=== PATIENT | female | born 1990 | race Caucasian/White ===

== ENCOUNTER 2020-03-11 16:21 | Outpatient (CLI) | payer BC ==
[2020-03-11 16:48] VITALS: PULSE 94; RESP 18; TEMP 98.8
[2020-03-11 17:13] LABS: Basophils % (A) 0 %; Eosinophils # (A) 0.1 k/uL (0-0.7); Eosinophils % (A) 1 %; HCT 36.8 % (34.0-46.0); HGB 12.1 gm/dL (11.4-16.0); Lymphocytes # (A) 1.2 k/uL (1.0-4.8); Lymphocytes % (A) 10 %; MCH 30.4 pg (25.0-35.0); MCHC 32.8 g/dL (31.0-37.0); MCV 92.6 fL (80.0-100.0); Mean Platelet Volume 8.2; Monocytes # (A) 0.5 k/uL (0-1.0); Monocytes % (A) 4 %; Neutrophils # (A) 10.3 k/uL (1.3-7.7); Neutrophils % (A) 84 %; Platelet Count 232 k/uL (150-450); RBC 3.97 m/uL (3.80-5.40); RDW 13.9 % (11.5-15.5); WBC 12.3 k/uL (3.8-10.6)
[2020-03-11 17:29] LABS: ALT 24 U/L (4-34); AST 28 U/L (14-36); African American GFR (CKD) >90 (>60 ml/min/1.73 sqM); Blood Urea Nitrogen 9 mg/dL (7-17); LDH 436 U/L (313-618); Non-African American GFR(CKD) >90 (>60 ml/min/1.73 sqM); Uric Acid 3.9 mg/dL (3.7-7.4)
[2020-03-11 17:36] LABS: Appearance,Urine Cloudy (Clear); Bacteria,Urine Rare /hpf; Bilirubin,Urine Negative (Negative); Blood,Urine Negative (Negative); Color,Urine Yellow; Glucose,Urine (UA) Negative (Negative); Ketones,Urine Negative (Negative); Leukocyte Esterase,Urine Small (Negative); Mucus,Urine Rare /hpf; Nitrite,Urine Negative (Negative); PH, Urine 6.5 (5.0-8.0); Protein,Urine Negative (Negative); RBC,Urine 2 /hpf (0-5); Specific Gravity,Urine 1.015 (1.001-1.035); Squamous Epithelial Cell,Urine 10 /hpf (0-4); Urobilinogen,Urine <2.0 mg/dL (<2.0); WBC,Urine 3 /hpf (0-5)
[2020-03-11 18:12] VITALS: BP 143/90
--- NOTE | 2020-03-13 12:54 | P.MSEPDOC ---
Presenting Problems - Arrival Data Date of Arrival on Unit: 03/11/20 Time of Arrival on Unit: 16:21 Mode of Transport: Ambulatory - Complaint OB-Reason for Admission/Chief Complaint: Observation/Evaluation Comment: Pt presents with upper ab pain since 1200 today. Medical History - Information : 1 Para: 0 Term: 0 : 0 Abortions: Spontaneous or Elective: 0 Number of Living Children: 0 - Gestational Age Gestational Age by MOY (wks/days): 38 Weeks and 2 Days Review of Systems - Review of Systems Constitutional: No problems Breast: No problems ENT: No problems Cardiovascular: No problems Respiratory: No problems Gastrointestinal: No problems Genitourinary: No problems Musculoskeletal: No problems Neurological: No problems Skin: No problems Vital Signs - Temperature Temperature: 98.8 F Temperature Source: Temporal Artery Scan - Pulse Right Sitting Brachial Pulse Rate: 94 Pulse Assessment Method: Automatic Cuff - Respirations Respiratory Rate: 18 Oxygen Delivery Method: Room Air O2 Sat by Pulse Oximetry: 98 - Blood Pressure Right Arm Sitting Blood Pressure: 143/90 Blood Pressure Mean: 107 Blood Pressure Source: Automatic Cuff Medical Screen Scoring (Pre) - Cervical Exam Dilation: 1-3 cm = 1 Effacement: More than 50% = 2 Membranes: Intact - Uterine Contractions Frequency: N/A Duration: N/A Intensity: N/A - Maternal Vital Signs Maternal Temperature: N/A Maternal Blood Pressure: N/A Signs of Preeclampsia: Epigastric Pain = 1 Maternal Respirations: N/A - Maternal Trauma Maternal Trauma: N/A - Assessment - Baby A Baseline FHR: 130 Heart Rate - NICHD Category: Category I (Normal) = 0 NST: Reactive Position: N/A Station: N/A - Total Score - Baby A Total Score - Baby A: 4 - Total Score - Baby B Total Score - Baby B: 4 - Total Score - Baby C Total Score - Baby C: 4 - Level of Risk - Baby A Level of Risk - Baby A: Low (0-5) - Level of Risk - Baby B Level of Risk - Baby B: Low (0-5) - Level of Risk - Baby C Level of Risk - Baby C: Low (0-5) Physician Notification (Pre) - Physician Notified Physician Notified Date: 03/11/20 Physician Notified Time: 16:45 New Order Received: Yes - Notification Comment Comment: Doris cruz\Dr. Broderick, advsd , 38 2, c/o upper abd pain/pressure since 1200 today, lower ab cramping, SVE 1.5/70/-2. Reviewed BPs and maternal ass't, states to order PIH labs, UA, no pro/cre ratio. Physician Notification (Post) - Notification Comment Comment: Reviewed labs and BP. Prescription sent in for Labetolol 100mg PO BID, pt to be off work, call office Saturday for appt same day. Review PIH S/SX and to return c\symptoms or decreased movement. Disposition - Disposition OB Disposition: Discharge to home, Written follow up instructions reviewed Discharge Date: 03/11/20 Discharge Time: 18:04 I agree with the RN Medical Screening Exam: Yes Risk & Benefit of care provided described in d/c instruction: Yes Diagnosis: GESTATIONAL HTN W/O SIGNIFICANT PROTEINURIA, THIRD TRIMESTER
== END 2020-03-11 18:04 | disposition home or self-care (01) ==
LOC: FBPOP 16:21
PROVIDERS: ATTEND Obstetrics & Gynecology
DX: O13.5 Gestational [pregnancy-induced] hypertension without significant proteinuria, complicating the puerperium (principal); Z3A.38 38 weeks gestation of pregnancy
CPT/HCPCS: 59025; 81001; 82565; 83615; 84450; 84460; 84520; 84550; 85025; 99215

== ENCOUNTER 2020-03-16 06:00 | Inpatient (IN) | payer BC ==
[2020-03-16] MEDS ORDERED: OXYTOCIN 10 UNIT/ML 1 ML VIAL IM PRN (06:38)
[2020-03-16] MEDS ORDERED: PENICILLIN G POTASSIUM 5,000,000 UNIT in DEXTROSE 5% IN WATER 100 ML IVPB STA ×2 (06:38)
[2020-03-16] MEDS ORDERED: LIDOCAINE 0.5% (PF) 5 MG/ML (50 ML SDV) SQ PRN (06:38)
[2020-03-16] MEDS ORDERED: METHYLERGONOVINE 0.2 MG/ML 1 ML AMP IM PRN (06:38)
[2020-03-16] MEDS ORDERED: CARBOPROST TROMETHAMINE 250 MCG/ML 1 ML AMP IM PRN (06:38)
[2020-03-16] MEDS ORDERED: TERBUTALINE 1 MG/ML VIAL SQ PRN (06:38)
[2020-03-16] MEDS ORDERED: OXYTOCIN 30 UNITS/500 ML NS 30 UNIT in SALINE 1 500ML.BAG IV SCH (06:45)
[2020-03-16 06:51] LABS: Basophils % (A) 0 %; Eosinophils # (A) 0.1 k/uL (0-0.7); Eosinophils % (A) 1 %; Lymphocytes # (A) 1.6 k/uL (1.0-4.8); Lymphocytes % (A) 15 %; MCH 31.3 pg (25.0-35.0); MCHC 32.4 g/dL (31.0-37.0); MCV 96.7 fL (80.0-100.0); Mean Platelet Volume 8.4; Monocytes # (A) 0.4 k/uL (0-1.0); Monocytes % (A) 4 %; Neutrophils # (A) 8.4 k/uL (1.3-7.7); Neutrophils % (A) 78 %; Platelet Count 259 k/uL (150-450); RBC 4.14 m/uL (3.80-5.40); RDW 14.3 % (11.5-15.5); WBC 10.7 k/uL (3.8-10.6)
[2020-03-16] MEDS: LACTATED RINGERS 1,000 ML IV SCH (06:58)
[2020-03-16] MEDS ORDERED: BUTORPHANOL 1 MG/ML 1 ML VIAL IV PRN (08:27)
--- NOTE | 2020-03-16 08:30 | P.HPOB ---
History of Present Illness H&P Date: 03/16/20 Chief Complaint: 39-0/7 weeks, -induced hypertension, induction The patient is a 29-year-old 1 para 0 admitted at 40-0/7 weeks as established by last menstrual period and confirmed by seven-week ultrasound. She is admitted for induction of labor with a relatively favorable cervix and a diagnosis of -induced hypertension which was made last week on a visit to triage at which time she had moderately elevated blood pressures but normal laboratory workup otherwise. Her blood pressures have remained stable and she has no other signs or symptoms of preeclampsia at this time. Her has been otherwise entirely uncomplicated. All signs are reassuring at this time. Group B strep status is positive. Obstetrical history: 1 para 0 with current statistics listed in history of present illness. EDC of 03/23/2020 was established by last menstrual period and confirmed by seven-week ultrasound. Laboratory workup de monstrates a blood type of A+ with a negative antibody screen. Rubella status is immune. Remainder of the laboratory workup was within normal limits. One hour Glucola was normal and group B strep status is positive. Gynecologic history: Unremarkable with no history of any infections to include S TDs. Past Medical History History of Any Multi-Drug Resistant Organisms: None Reported Smoking Status: Never smoker Medications and Allergies Home Medications Medication Instructions Recorded Confirmed Type Pnv No.95/Ferrous Fum/Folic AC 1 each PO DAILY 03/11/20 03/16/20 History [ Multivitamin Tablet] Thyroid,Pork [[place] Thyroid] 120 mg PO DAILY 03/11/20 03/16/20 History Labetalol HCl 100 mg PO BID 03/16/20 03/16/20 History Allergies Allergy/AdvReac Type Severity Reaction Status Date / Time No Known Allergies Allergy Verified 03/16/20 06:35 Exam Intake and Output 03/15/20 03/16/20 03/16/20 22:59 06:59 14:59 Other: Weight 113.852 kg Results Result Diagrams: 03/16/20 06:30 Abnormal Lab Results - Last 24 Hours (Table) 03/16/20 Range/Units 06:30 WBC 10.7 H (3.8-10.6) k/uL Neutrophils # 8.4 H (1.3-7.7) k/uL
[2020-03-16] MEDS: PENICILLIN G POTASSIUM 2,500,000 UNIT in DEXTROSE 5% IN WATER 100 ML IVPB SCH ×4 (11:31→15:53)
[2020-03-16] MEDS ORDERED: fentaNYL (PF) 50 MCG/ML 5 ML AMP ONE (13:40)
[2020-03-16] MEDS ORDERED: ROPIVACAINE 5MG/ML 20ML VIAL ONE (13:40)
[2020-03-16] MEDS ORDERED: SODIUM CHLORIDE 0.9% 100 ML BAG ONE (13:40)
[2020-03-16] MEDS ORDERED: BENZOCAINE/MENTHOL SPRAY 1 GM/SPRAY AEROSOL TOPICAL PRN (16:47)
[2020-03-16] MEDS ORDERED: diphenhydrAMINE 50 MG/ML 1 ML VIAL IVP PRN ×2 (16:47)
[2020-03-16] MEDS ORDERED: HYDROcodone/APAP 7.5-325MG 1 EACH TAB PO PRN (16:47)
[2020-03-16] MEDS ORDERED: diphenhydrAMINE 50 MG CAP PO PRN (16:47)
[2020-03-16] MEDS ORDERED: ACETAMINOPHEN TAB 325 MG TAB PO PRN (16:47)
[2020-03-16] MEDS ORDERED: diphenhydrAMINE 25 MG CAP PO PRN (16:47)
[2020-03-16] MEDS ORDERED: HYDROcodone/APAP 5-325MG 1 EACH TAB PO PRN (16:47)
[2020-03-16] MEDS ORDERED: SIMETHICONE 80 MG CHEWABLE PO PRN (16:47)
[2020-03-16] MEDS ORDERED: LANOLIN CREAM 5 GM TUBE TOPICAL PRN (16:47)
[2020-03-16] MEDS ORDERED: ZOLPIDEM 5 MG TAB PO PRN (16:47)
[2020-03-16] MEDS ORDERED: IBUPROFEN 600 MG TAB PO PRN (16:47)
[2020-03-16] MEDS ORDERED: HYDROCORTISONE 2.5% RECTAL CREAM 30 GM TUBE RECTAL PRN (16:47)
--- NOTE | 2020-03-16 16:51 | P.PROBDLV ---
Vaginal Delivery Note - . Vaginal Delivery Note: The patient is a 29-year-old 1 para 0 admitted at 39-0/7 weeks by good dating parameters. She is admitted for induction of labor secondary to recent onset of induced hypertension without evidence of preeclampsia and a relatively favorable cervix. Her has been uncomplicated until the diagnosis of induced hypertension which was made last week. She has been stable since then on labetalol 100 mg twice daily. Group B strep status is negative. On labor and delivery, she had Pitocin augmentation started and underwent artificial rupture of membranes demonstrating clear fluid. She made average progress through the latent phase of labor and then fairly rapid progress through the active phase of labor to complete. She then pushed over the course of approximately 25 minutes to a normal spontaneous vaginal delivery of a viable 7 lbs. 9 oz. baby girl with Apgars of 9 at 1 minute and 9 at 5 minutes delivered in the right occiput anterior position. The placenta was delivered spontaneously, intact, and grossly normal though there are number of lacerations and it from me grasping it to help in removal. There was a grossly normal three-vessel cord inserted approximately 27 m from the margin of the placental disc. There was a small first-degree midline perineal laceration which was gaping to some extent and therefore closed with a single [id number] stitch of 3-0 chromic catgut without difficulty. Estimated blood loss for the entire case was approximately 200 mL. There were no complications. All sponge, instrument, and needle counts were correct. Both mother and are resting comfortably in recovery.
[2020-03-16] MEDS ORDERED: OXYTOCIN 20 UNITS/1000 ML NS 1,000 ML IV SCH (17:00)
[2020-03-16] MEDS: SENNOSIDES-DOCUSATE SODIUM 1 EACH TAB PO SCH (19:46)
[2020-03-17 01:28] VITALS: PULSE 83
[2020-03-17 05:10] VITALS: BP 132/87; RESP 16; TEMP 98.7
--- NOTE | 2020-03-17 08:42 | P.DS ---
Providers Date of admission: 03/16/20 06:21 Expected date of discharge: 03/17/20 Attending physician: Sree Broderick Primary care physician: Stated None - Discharge Diagnosis(es) (1) Normal spontaneous vaginal delivery Current Visit: Yes Status: Acute Hospital Course: The patient is a 29-year-old 1 para 0 admitted at 39-0/7 weeks by good dating parameters. She is admitted for induction of labor secondary to a recent diagnosis of -induced hypertension with a favorable cervix. Her had been otherwise uncomplicated and group B strep status is positive. As result, she received antibody prophylaxis and had Pitocin augmentation started. She then underwent artificial rupture of membranes for clear fluid. She made average progress through the latent phase of labor but then progressed fairly quickly through the active phase of labor to complete where after she pushed to a normal spontaneous vaginal delivery of a viable 7 lbs. 9 oz. baby girl with Apgars of 9 at 1 minute and 9 at 5 minutes. Her course was unremarkable with vital signs remaining stable and her temperature was afebrile throughout. Her blood pressures remained within the normal range without any added medications. She was deemed stable for discharge on day #1 was discharged home to follow-up in the office in 6 weeks' time routinely. Discharge instructions included calling for any significantly increased bleeding or foul-smelling lochia, significantly increased fever abdominal pain, perineal complaints, breast complaints, or anything else that concerned her. She was additionally instructed to have nothing in the vagina for at least 6 weeks time to include intercourse. She understood her instructions and agrees to follow up as noted above. Discharge medications included continued vitamins as she has opted to breast-feed. She was otherwise is to use [id number]-[id number] analgesic pain medications as needed. Maternal blood type is A+ and rubella status is immune. Procedures: #1. Pitocin induction #2. Antibiotic prophylaxis #3. Artificial rupture of membranes #4. Epidural analgesia #5. Normal spontaneous vaginal delivery #. Repair of perineal laceration Patient Condition at Discharge: Stable Plan - Discharge Summary New Discharge Prescriptions: No Action Thyroid,Pork [[place] Thyroid] 120 mg PO DAILY Pnv No.95/Ferrous Fum/Folic AC [ Multivitamin Tablet] 1 each PO DAILY Labetalol HCl 100 mg PO BID Discharge Medication List Pnv No.95/Ferrous Fum/Folic AC [ Multivitamin Tablet] 1 each PO DAILY 07/17/20 [History] Thyroid,Pork [[place] Thyroid] 120 mg PO DAILY 03/11/20 [History] Labetalol HCl 100 mg PO BID 03/16/20 [History] Follow up Appointment(s)/Referral(s): Sree Broderick MD [STAFF PHYSICIAN] - 6 Weeks Discharge Disposition: HOME SELF-CARE
[2020-03-17] MEDS: LACTATED RINGERS 1,000 ML IV SCH (13:08)
[2020-03-17] MEDS: SENNOSIDES-DOCUSATE SODIUM 1 EACH TAB PO SCH (13:09)
== END 2020-03-17 17:22 | disposition home or self-care (01) | DRG 807 ==
LOC: 4FBP 06:21
PROVIDERS: ADMIT Obstetrics & Gynecology; ATTEND Obstetrics & Gynecology
PROC: 10907ZC Drainage of Amniotic Fluid, Therapeutic from Products of Conception, Via Natural or Artificial Opening (ICD-10-PCS; principal; 2020-03-16)
PROC: 0HQ9XZZ Repair Perineum Skin, External Approach (ICD-10-PCS; principal; 2020-03-16)
PROC: 3E033VJ Introduction of Other Hormone into Peripheral Vein, Percutaneous Approach (ICD-10-PCS; principal; 2020-03-16)
PROC: 3E0R3BZ Introduction of Anesthetic Agent into Spinal Canal, Percutaneous Approach (ICD-10-PCS; principal; 2020-03-16)
PROC: 10E0XZZ Delivery of Products of Conception, External Approach (ICD-10-PCS; principal; 2020-03-16)
PROC: 00HU33Z Insertion of Infusion Device into Spinal Canal, Percutaneous Approach (ICD-10-PCS; principal; 2020-03-16)
DX: O13.4 Gestational [pregnancy-induced] hypertension without significant proteinuria, complicating childbirth (principal); Z37.0 Single live birth; O99.824 Streptococcus B carrier state complicating childbirth; O70.0 First degree perineal laceration during delivery; Z3A.40 40 weeks gestation of pregnancy; Z79.890 Hormone replacement therapy; Z79.899 Other long term (current) drug therapy
CPT/HCPCS: 85025; 86850; 86900; 86901

== ENCOUNTER → 2022-02-23 | Outpatient (CLI) | payer BC ==
[2022-02-23 19:28] LABS: Total Protein 24 Hour,Urine 16.3 mg/dL (0.0-165.0)
[2022-02-23 21:34] LABS: Total Volume 24 Hour,Urine 1000 mL
== END | disposition home or self-care (01) ==
LOC: LABWHC1 10:02 → EDSTATUS 10:06
PROVIDERS: ATTEND Obstetrics & Gynecology
DX: O13.9 Gestational [pregnancy-induced] hypertension without significant proteinuria, unspecified trimester (principal); Z3A.00 Weeks of gestation of pregnancy not specified
CPT/HCPCS: 36415; 81050; 82575; 84156

== ENCOUNTER 2022-03-19 18:21 | Emergency (ER) | payer BC ==
[2022-03-19 18:47] VITALS: TEMP 98
[2022-03-19] MEDS ORDERED: ACETAMINOPHEN IV (For NPO) 1,000 MG in SALINE 100 100ML.BAG IVPB STA (18:57)
[2022-03-19] MEDS ORDERED: SODIUM CHLORIDE 0.9% 2,000 ML IV STA (18:57)
[2022-03-19] MEDS ORDERED: MORPHINE SULFATE 4 MG/ML SYRINGE IV STA ×2 (18:57→20:52)
--- NOTE | 2022-03-19 18:58 | ED ---
Abdominal Pain HPI - General Chief Complaint: Abdominal Pain Stated Complaint: 15 wks preg/back/abd pain Time Seen by Provider: 03/19/22 18:50 Source: patient, RN notes reviewed Mode of arrival: ambulatory Limitations: no limitations - History of Present Illness Initial Comments: This is a pleasant 31-year-old female who is A0. Patient is currently 15 weeks . Patient presents with left flank pain which started about 3 days ago. Patient states the pain was initially intermittent but became quite severe and constant today. Describes sharp pain in left flank, most intense in the left CVA area. No fever. No hematuria. Patient denying any vaginal discharge or vaginal bleeding. Patient denies any pelvic or abdominal pain. Does radiate from the left CVA fyqqtu-tfd-[id number] flank. No history of renal stones. There is a family history in the maternal uncle. Patient does have a history of hypertension and is found to be hypertensive in triage. POSITIVE for recent intermittent headaches which is related to being dehydrated at work., no fever or chills, no changes in vision or hearing, no sore throat or difficulty with speech, no neck pain, no chest pain or shortness of breath, no abdominal pain, no nausea or vomiting, no changes in urination or bowel movements, no numbness or tingling, no extremity pain, no skin rashes or lesions. Past medical, surgical, social, and family history reviewed. MD Complaint: flank pain - Related Data Home Medications Medication Instructions Recorded Confirmed Pnv No.95/Ferrous Fum/Folic AC 1 tab PO DAILY 03/11/20 03/19/22 [ Multivitamin Tablet] Labetalol HCl 200 mg PO BID 03/19/22 03/19/22 Thyroid,Pork [[place] Thyroid] 180 mg PO DAILY 03/19/22 03/19/22 Previous Rx's Medication Instructions Recorded HYDROcodone/APAP 5-325MG [[place] 1 tab PO Q6HR PRN 3 Days #12 tab 03/19/22 5-325] Allergies Allergy/AdvReac Type Severity Reaction Status Date / Time No Known Allergies Allergy Verified 03/19/22 18:47 Review of Systems ROS Statement: Those systems with pertinent positive or pertinent negative responses have been documented in the HPI. ROS Other: All systems not noted in ROS Statement are negative. Past Medical History Past Medical History: Hypertension, Thyroid Disorder Additional Past Medical History / Comment(s): hypothyroidism, gestational hypertension History of Any Multi-Drug Resistant Organisms: None Reported Additional Past Surgical History / Comment(s): right toe surgery from fracture, wisdom teeth Past Anesthesia/Blood Transfusion Reactions: No Reported Reaction Past Psychological History: No Psychological Hx Reported Smoking Status: Never smoker - Past Family History Father Family Medical History: Hypertension Mother Family Medical History: Hypertension, Thyroid Disorder General Exam - General Exam Comments Initial Comments: Nontoxic appearing female in moderate distress secondary to left flank pain. Patient appears to be restless. Holding her left CVA area. Cranial nerves II through XII grossly intact. Vital signs reviewed. Patient noted to be hypertensive and tachycardic. Limitations: no limitations General appearance: alert, in distress Head exam: Present: atraumatic, normocephalic, normal inspection Eye exam: Present: normal appearance, PERRL, EOMI. Absent: scleral icterus, conjunctival injection, periorbital swelling ENT exam: Present: normal exam, normal oropharynx, mucous membranes moist. Absent: mucous membranes dry, normal external ear exam Neck exam: Present: normal inspection, full ROM. Absent: tenderness, meningismus, lymphadenopathy Respiratory exam: Present: normal lung sounds bilaterally. Absent: respiratory distress, wheezes, rales, rhonchi, stridor, chest wall tenderness, accessory muscle use Cardiovascular Exam: Present: regular rate, normal rhythm, normal heart sounds. Absent: systolic murmur, diastolic murmur, rubs, gallop, clicks GI/Abdominal exam: Present: soft, normal bowel sounds. Absent: distended, tenderness, guarding, rebound, rigid External exam: Present: normal external exam. Absent: erythema, swelling, lesions, lacerations, ecchymosis Extremities exam: Present: normal inspection, full ROM, normal capillary refill. Absent: tenderness, pedal edema, joint swelling, calf tenderness Back exam: Present: normal inspection, full ROM, CVA tenderness (L). Absent: tenderness, CVA tenderness (R), muscle spasm, paraspinal tenderness Neurological exam: Present: alert, oriented X3, CN II-XII intact Psychiatric exam: Present: normal affect, normal mood Skin exam: Present: warm, dry, intact, normal color. Absent: rash Course Vital Signs 03/19/22 03/19/22 18:44 20:38 Temperature 98.0 F Pulse Rate 118 H 86 Respiratory 20 18 Rate Blood Pressure 181/110 149/77 O2 Sat by Pulse 100 96 Oximetry - Reevaluation(s) Reevaluation #1: 03/19/22 20:43 Medical record is reviewed Symptoms are improved here in the emergency department Patient is informed of results and questions answered Patient in no distress - Consultations Consultation #1: ultrasound shows current scan at 16 weeks 0 days gestation, no other abnormality Ultrasound of the kidney/ureter/bladder shows left hydronephrosis Consultation #2: Case discussed in detail Dr. Torres who is on-call for the patient's linux support engineer, Dr. Leach. She suggests continuing pain medication for the next few days. Follow-up in the morning at their office for reevaluation. She also suggested antibiotics in the form of Macrobid 100 mg twice a day. Medical Decision Making - Medical Decision Making Patient's presentation most consistent with ureteral colic. We'll order a kidney/ureter/bladder ultrasound. We'll obtain a pelvic ultrasound to assess the fetus as well. Patient afebrile. Possibility of infectious process, less likely. Does not appear to be consistent with intra-abdominal pelvic etiology. Does not appear to be consistent with vascular etiology. Given the patient's age, unlikely cardiopulmonary. Patient's clinical picture consistent with left renal colic. Left hydronephrosis. Case discussed with ENGINEERING TEACHER who suggested antibiotics and follow-up at their office. Patient be covered with starter pack of Tylenol with Codeine. Work note given. All findings discussed. The case was discussed in detail with ED attending physician. Presentation, findings, treatment plan discussed in detail. Patient was told to return to the ER for any signs or symptoms worsen. Told to return immediately if any other problems arise. All questions answered. Treatment plan discussed. Patient in agreement Every effort has been made to ensure accuracy of this dictation. However, due to the limitations of electronic medical records and dictation devices, errors in charting still occur. Supervising physicians Dr. Anderson - Lab Data Result diagrams: 03/19/22 19:22 03/19/22 19:22 Lab Results 03/19/22 03/19/22 03/19/22 Range/Units 19:22 19:22 19:22 WBC 10.5 (3.8-10.6) k/uL RBC 4.09 (3.80-5.40) m/uL Hgb 12.4 (11.4-16.0) gm/dL Hct 38.0 (34.0-46.0) % MCV 92.9 (80.0-100.0) fL MCH 30.3 (25.0-35.0) pg MCHC 32.7 (31.0-37.0) g/dL RDW 12.8 (11.5-15.5) % Plt Count 213 (150-450) k/uL MPV 8.1 Neutrophils % 81 % Lymphocytes % 12 % Monocytes % 4 % Eosinophils % 2 % Basophils % 0 % Neutrophils # 8.5 H (1.3-7.7) k/uL Lymphocytes # 1.3 (1.0-4.8) k/uL Monocytes # 0.5 (0-1.0) k/uL Eosinophils # 0.2 (0-0.7) k/uL Basophils # 0.0 (0-0.2) k/uL Sodium 135 L (137-145) mmol/L Potassium 3.6 (3.5-5.1) mmol/L Chloride 105 (98-107) mmol/L Carbon Dioxide 22 (22-30) mmol/L Anion Gap 8 mmol/L BUN 11 (7-17) mg/dL Creatinine 0.94 (0.52-1.04) mg/dL Est GFR (CKD-EPI)AfAm >90 (>60 ml/min/1.73 sqM) Est GFR (CKD-EPI)NonAf 82 (>60 ml/min/1.73 sqM) Glucose 107 H (74-99) mg/dL Calcium 9.8 (8.4-10.2) mg/dL Total Bilirubin 0.4 (0.2-1.3) mg/dL AST 30 (14-36) U/L ALT 29 (4-34) U/L Alkaline Phosphatase 62 (38-126) U/L Total Protein 6.9 (6.3-8.2) g/dL Albumin 4.2 (3.5-5.0) g/dL Lipase 87 (23-300) U/L Urine Color Yellow Urine Appearance Cloudy H (Clear) Urine pH 6.0 (5.0-8.0) Ur Specific [place] 1.029 (1.001-1.035) Urine Protein Trace H (Negative) Urine Glucose (UA) Negative (Negative) Urine Ketones Negative (Negative) Urine Blood Moderate H (Negative) Urine Nitrite Negative (Negative) Urine Bilirubin Negative (Negative) Urine Urobilinogen <2.0 (<2.0) mg/dL Ur Leukocyte Esterase Negative (Negative) Urine RBC 35 H (0-5) /hpf Urine WBC 4 (0-5) /hpf Ur Squamous Epith Cells 5 H (0-4) /hpf Urine Bacteria Rare H (None) /hpf Hyaline Casts 1 (0-2) /lpf Urine Mucus Rare H (None) /hpf Disposition Clinical Impression: Renal colic on left side, Hydronephrosis, left, Acute left flank pain Narrative: Currently , second trimester Disposition: HOME SELF-CARE Condition: Stable Instructions (If sedation given, give patient instructions): Abdominal Pain in (ED), Flank Pain (ED), Renal Colic (ED), How to Strain Your Urine (ED) Additional Instructions: Take antibiotics as directed. Parker as directed. Increase hydration. Call the a.m. in the morning to set up a follow-up with ENGINEERING TEACHER. Return to the ER immediately if any symptoms worsen, new symptoms arise, or any other problems develop. Is patient prescribed a controlled substance at d/c from ED?: Yes When asked, does pt state using other controlled substances?: No If prescribed controlled substance>3 days was MAPS reviewed?: Prescribed <3 Days Referrals: Sree Broderick MD [STAFF PHYSICIAN] - 1-2 days
[2022-03-19] MEDS ORDERED: cefTRIAXone 250 MG VIAL IM STA (19:23)
[2022-03-19] MEDS ORDERED: DOXYCYCLINE 100 MG CAP PO STA (19:25)
[2022-03-19 19:27] LABS: Basophils % (A) 0 %; Eosinophils # (A) 0.2 k/uL (0-0.7); Eosinophils % (A) 2 %; HGB 12.4 gm/dL (11.4-16.0); Lymphocytes # (A) 1.3 k/uL (1.0-4.8); Lymphocytes % (A) 12 %; MCH 30.3 pg (25.0-35.0); MCHC 32.7 g/dL (31.0-37.0); MCV 92.9 fL (80.0-100.0); Mean Platelet Volume 8.1; Monocytes # (A) 0.5 k/uL (0-1.0); Monocytes % (A) 4 %; Neutrophils # (A) 8.5 k/uL (1.3-7.7); Neutrophils % (A) 81 %; Platelet Count 213 k/uL (150-450); RBC 4.09 m/uL (3.80-5.40); RDW 12.8 % (11.5-15.5); WBC 10.5 k/uL (3.8-10.6)
[2022-03-19 19:53] LABS: Appearance,Urine Cloudy (Clear); Bacteria,Urine Rare /hpf; Bilirubin,Urine Negative (Negative); Blood,Urine Moderate (Negative); Color,Urine Yellow; Glucose,Urine (UA) Negative (Negative); Hyaline Casts,Urine 1 /lpf (0-2); Ketones,Urine Negative (Negative); Leukocyte Esterase,Urine Negative (Negative); Mucus,Urine Rare /hpf; Nitrite,Urine Negative (Negative); Protein,Urine Trace (Negative); RBC,Urine 35 /hpf (0-5); Specific Gravity,Urine 1.029 (1.001-1.035); Squamous Epithelial Cell,Urine 5 /hpf (0-4); Urobilinogen,Urine <2.0 mg/dL (<2.0); WBC,Urine 4 /hpf (0-5)
[2022-03-19 20:13] LABS: ALT 29 U/L (4-34); AST 30 U/L (14-36); African American GFR (CKD) >90 (>60 ml/min/1.73 sqM); Albumin 4.2 g/dL (3.5-5.0); Alkaline Phosphatase 62 U/L (38-126); Anion Gap 8 mmol/L; Blood Urea Nitrogen 11 mg/dL (7-17); Calcium 9.8 mg/dL (8.4-10.2); Carbon Dioxide 22 mmol/L (22-30); Chloride 105 mmol/L (98-107); Glucose 107 mg/dL (74-99); Lipase 87 U/L (23-300); Non-African American GFR(CKD) 82 (>60 ml/min/1.73 sqM); Potassium 3.6 mmol/L (3.5-5.1); Sodium 135 mmol/L (137-145); Total Bilirubin 0.4 mg/dL (0.2-1.3); Total Protein 6.9 g/dL (6.3-8.2)
--- NOTE | 2022-03-19 20:38 | US ---
EXAMINATION TYPE: US OB >= 14 wk fetus DATE OF EXAM: 03/19/2022 COMPARISON: None CLINICAL HISTORY: Left flank painBack pain TECHNIQUE: Transabdominal (TA) GESTATIONAL AGE / DATING Physician Established: (15 weeks/1 days) EDC: 09/09/2022 Dates by LMP: LMP unknown Dates by First Scan: No previous here Dates by Current Scan: (16 weeks/0 days) EDC: 09/03/2022 SURVEY IUP: Single PLACENTA: Posterior PREVIA: Low Lying HARRISON: 10.5 cm Normal CERVICAL LENGTH (transabdominal: norm > 3.0cm): 3.6 cm BIOMETRY PRESENTATION: Breech LIE: Longitudinal BPD: 3.2 cm 16 weeks / 0 days HC: 12.0 cm 16 weeks / 0 days AC: 10.2 cm 16 weeks / 1 days FL: 1.7 cm 15 weeks / 0 days ESTIMATED WEIGHT IN GRAMS: 132 grams ESTIMATED WEIGHT IN LBS/OZ: 0 lbs. 5 oz. WEIGHT PERCENTAGE BASED ON ESTABLISHED DATES: 76% HC/AC: 1.18 Normal FL/AC: 16.81 HEART RATE: 151 bpm RHYTHM: Normal IMPRESSION: Single live intrauterine gestation with gestational age of 16 weeks and 0 days.
--- NOTE | 2022-03-19 20:38 | US ---
EXAMINATION TYPE: US kidneys/renal and bladder DATE OF EXAM: 03/19/2022 COMPARISON: NONE CLINICAL HISTORY: Left flank pain. Back pain, patient 15 weeks EXAM MEASUREMENTS: Right Kidney: 9.7 x 5.8 x 4.6 cm Left Kidney: 12.2 x 6.3 x 6.4 cm Right Kidney: No hydronephrosis or masses seen Left Kidney: larger is size when compared to right kidney, hydronephrosis Bladder: not fully distended Bilateral Jets seen: no IMPRESSION: Mild left hydronephrosis which can be normal physiology in the .
[2022-03-19 20:39] VITALS: RESP 18
[2022-03-19] MEDS ORDERED: NITROFURANTOIN MONOHYD/M-CRYST 100 MG CAP PO STA (20:58)
[2022-03-19] MEDS ORDERED: ACET/COD 300 MG/30 MG STARTER PACK 6 TAB BTL PO STA (21:01)
[2022-03-19 22:17] VITALS: BP 138/72; PULSE 88
== END 2022-03-19 22:17 | disposition home or self-care (01) ==
LOC: EC 18:21
DX: O26.892 Other specified pregnancy related conditions, second trimester (principal); O26.832 Pregnancy related renal disease, second trimester; I10 Essential (primary) hypertension; E07.9 Disorder of thyroid, unspecified; Z79.899 Other long term (current) drug therapy; Z3A.15 15 weeks gestation of pregnancy
CPT/HCPCS: 36415; 80053; 83690; 85025; 81001; 76805; 76770; 99284; 96374; 96375; 96376; 96361 ×3; J2270; J0131

== ENCOUNTER 2022-09-03 06:15 | Inpatient (IN) | payer BC ==
[2022-09-03] MEDS ORDERED: OXYTOCIN 10 UNIT/ML 1 ML VIAL IM PRN (07:27)
[2022-09-03] MEDS ORDERED: miSOPROStoL 200 MCG TAB PO PRN (07:27)
[2022-09-03] MEDS ORDERED: TERBUTALINE 1 MG/ML VIAL SQ PRN (07:27)
[2022-09-03] MEDS ORDERED: LIDOCAINE 0.5% (PF) 5 MG/ML (50 ML SDV) SQ PRN (07:27)
[2022-09-03] MEDS ORDERED: CARBOPROST TROMETHAMINE 250 MCG/ML 1 ML AMP IM PRN (07:27)
[2022-09-03] MEDS ORDERED: METHYLERGONOVINE 0.2 MG/ML 1 ML AMP IM PRN (07:27)
[2022-09-03] MEDS ORDERED: OXYTOCIN 30 UNITS/500 ML NS 30 UNIT in SALINE 1 500ML.BAG IV SCH ×2 (07:30→12:45)
[2022-09-03 07:47] LABS: Basophils % (A) 0 %; Eosinophils % (A) 1 %; HCT 33.5 % (34.0-46.0); HGB 11.1 gm/dL (11.4-16.0); Hypochromasia Slight; Lymphocytes # (A) 1.2 k/uL (1.0-4.8); Lymphocytes % (A) 14 %; MCH 29.9 pg (25.0-35.0); MCHC 33.2 g/dL (31.0-37.0); MCV 90.1 fL (80.0-100.0); Mean Platelet Volume 9.4; Monocytes # (A) 0.3 k/uL (0-1.0); Monocytes % (A) 3 %; Neutrophils # (A) 6.3 k/uL (1.3-7.7); Neutrophils % (A) 79 %; Platelet Count 272 k/uL (150-450); RBC 3.72 m/uL (3.80-5.40); RDW 14.4 % (11.5-15.5)
[2022-09-03] MEDS: LACTATED RINGERS 1,000 ML IV SCH ×2 (07:52→10:20)
[2022-09-03] MEDS ORDERED: BUTORPHANOL 1 MG/ML 1 ML VIAL IV PRN (08:38)
--- NOTE | 2022-09-03 08:42 | P.HPOB ---
History of Present Illness H&P Date: 09/03/22 Chief Complaint: 39+ weeks, elective induction The patient is a 32-year-old 2 para 1001 admitted at 39+ weeks as established by a 10 week ultrasound. She is admitted for elective induction of labor with a favorable cervix and all signs reassuring, category 1 heart rate tracing. Her has been uncomplicated though she does have known chronic hypertension which is been stable throughout the on labetalol 200 mg twice daily along with a baby aspirin. Group B strep status is negative. Obstetrical history: 2 para 1001 with 1 term vaginal delivery without complications aside from -induced hypertension. EDC of 09/09/2021 was established by 10 week ultrasound. Laboratory workup demonstrates a blood type of A+ with a negative antibody screen. Rubella status is immune. Remainder of the laboratory workup was within normal limits. Early Glucola was elevated and followed by a normal three-hour glucose tolerance test. Second trimester Glucola was normal. Group B strep status is negative. Gynecologic history: Unremarkable with no history of any infections to include STDs. Review of Systems Review of systems is confined to history of present illness. Past Medical History Past Medical History: Hypertension, Thyroid Disorder Additional Past Medical History / Comment(s): hypothyroidism History of Any Multi-Drug Resistant Organisms: None Reported Additional Past Surgical History / Comment(s): right toe surgery from fracture, wisdom teeth Past Anesthesia/Blood Transfusion Reactions: No Reported Reaction Past Psychological History: No Psychological Hx Reported Smoking Status: Never smoker Past Alcohol Use History: None Reported Past Drug Use History: None Reported - Past Family History Father Family Medical History: Hypertension Mother Family Medical History: Hypertension, Thyroid Disorder Medications and Allergies Home Medications Medication Instructions Recorded Confirmed Type Pnv No.95/Ferrous Fum/Folic AC 1 tab PO DAILY 03/11/20 09/03/22 History [ Multivitamin Tablet] Labetalol HCl 200 mg PO BID 03/19/22 09/03/22 History Thyroid,Pork [[place] Thyroid] 180 mg PO DAILY 03/19/22 09/03/22 History Aspirin 81 mg PO DAILY 09/03/22 09/03/22 History Allergies Allergy/AdvReac Type Severity Reaction Status Date / Time No Known Allergies Allergy Verified 09/03/22 07:25 Exam Vital Signs Temp Pulse Resp BP 09/03/22 07:36 97.6 F 110 H 16 125/70 Intake and Output 09/02/22 09/03/22 09/03/22 22:59 06:59 14:59 Other: Weight 113.398 kg General, this is a well-developed, well-nourished white female in no acute distress. Her heart has a regular rhythm and rate without murmur. Her lungs clear to auscultation bilaterally in all [place]. Her abdomen is gravid, nondistended, has normal active bowel sounds, soft, nontender, and without any palpable masses aside from uterine fundus. Her extremities without any cyanosis, clubbing, or significant edema and are nontender to palpation bilaterally. Digital cervical examination demonstrates her cervix to be 3+ centimeters dilated, 60% effaced, the vertex in presentation at -2 station. Artificial rupture of membranes is carried out demonstrating clear fluid. Results Result Diagrams: 09/03/22 07:20 Abnormal Lab Results - Last 24 Hours (Table) 09/03/22 Range/Units 07:20 RBC 3.72 L (3.80-5.40) m/uL Hgb 11.1 L (11.4-16.0) gm/dL Hct 33.5 L (34.0-46.0) % Assessment and Plan (1) Term Current Visit: Yes Status: Acute Code(s): Z34.90 - ENCNTR FOR SUPRVSN OF NORMAL , UNSP, UNSP TRIMESTER SNOMED Code(s): 55798206 Plan: The patient is admitted for elective induction of labor with all signs reassuring. Her is uncomplicated as noted above. She has had Pitocin augmentation started and undergone artificial rupture of membranes. She will close maternal and surveillance and expectant management will be practiced. She is a good candidate for either IV or epidural analgesia, whichever she may choose.
[2022-09-03] MEDS ORDERED: SODIUM CHLORIDE 0.9% 100 ML BAG ONE (10:14)
[2022-09-03] MEDS ORDERED: fentaNYL (PF) 50 MCG/ML 5 ML AMP ONE (10:14)
[2022-09-03] MEDS ORDERED: ROPIVACAINE 5 MG/ML 20 ML AMPULE ONE (10:14)
[2022-09-03] MEDS ORDERED: diphenhydrAMINE 50 MG/ML 1 ML VIAL IVP PRN ×2 (12:37)
[2022-09-03] MEDS ORDERED: diphenhydrAMINE 50 MG CAP PO PRN (12:37)
[2022-09-03] MEDS ORDERED: SIMETHICONE 80 MG CHEWABLE PO PRN (12:37)
[2022-09-03] MEDS ORDERED: ACETAMINOPHEN TAB 325 MG TAB PO PRN (12:37)
[2022-09-03] MEDS ORDERED: ZOLPIDEM 5 MG TAB PO PRN (12:37)
[2022-09-03] MEDS ORDERED: HYDROCORTISONE 2.5% RECTAL CREAM 30 GM TUBE RECTAL PRN (12:37)
[2022-09-03] MEDS ORDERED: diphenhydrAMINE 25 MG CAP PO PRN (12:37)
[2022-09-03] MEDS ORDERED: IBUPROFEN 600 MG TAB PO PRN (12:37)
[2022-09-03] MEDS ORDERED: HYDROcodone/APAP 7.5-325MG 1 EACH TAB PO PRN (12:37)
[2022-09-03] MEDS ORDERED: HYDROcodone/APAP 5-325MG 1 EACH TAB PO PRN (12:37)
[2022-09-03] MEDS ORDERED: BENZOCAINE/MENTHOL SPRAY 1 GM/SPRAY AEROSOL TOPICAL PRN (12:37)
--- NOTE | 2022-09-03 12:40 | P.PROBDLV ---
Vaginal Delivery Note - . Vaginal Delivery Note: The patient is a 32-year-old 2 para 101 admitted at 39 and one sevenths weeks by good dating parameters. She is admitted for elective induction of labor with all signs reassuring, category 1 heart rate tracing. Her has been uncomplicated though she does carry a diagnosis of chronic hypertension for which she has been stable on labetalol 200 mg twice daily for the . testing has been reassuring throughout in the third trimester. On labor and delivery, she had Pitocin started followed by artificial rupture of membranes for clear fluid. She made progress to the active phase of labor which time an epidural catheter was placed for analgesia. She then progressed quickly through the active phase of labor to complete and pushed over the course of approximately 10 minutes to a normal spontaneous vaginal delivery of a viable 9 lbs. 3 oz. baby boy with Apgars of 9 at 1 minute and 9 at 5 minutes delivered in the left occiput anterior position. The placenta was delivered spontaneously, intact, and grossly normal with a grossly normal, relatively centrally inserted three-vessel cord. There was a small first-degree perineal laceration which was repaired with a single [id number] stitch of 3-0 chromic catgut without difficulty. Estimated blood loss for the case is approximately 200 mL. There were no complications. All sponge, instrument, and needle counts were correct. Both mother and are resting comfortably in recovery.
[2022-09-03] MEDS ORDERED: SENNOSIDES-DOCUSATE SODIUM 1 EACH TAB PO SCH (20:00)
[2022-09-04 00:31] VITALS: PULSE 85; RESP 16
[2022-09-04 06:44] LABS: Basophils % (A) 0 %; Eosinophils # (A) 0.1 k/uL (0-0.7); Eosinophils % (A) 1 %; HCT 30.3 % (34.0-46.0); HGB 10.1 gm/dL (11.4-16.0); Hypochromasia Slight; Lymphocytes # (A) 1.4 k/uL (1.0-4.8); Lymphocytes % (A) 12 %; MCH 30.3 pg (25.0-35.0); MCHC 33.4 g/dL (31.0-37.0); MCV 90.8 fL (80.0-100.0); Mean Platelet Volume 9.2; Monocytes # (A) 0.5 k/uL (0-1.0); Monocytes % (A) 5 %; Neutrophils # (A) 9.4 k/uL (1.3-7.7); Neutrophils % (A) 81 %; Platelet Count 257 k/uL (150-450); RBC 3.33 m/uL (3.80-5.40); RDW 14.2 % (11.5-15.5); WBC 11.7 k/uL (3.8-10.6)
[2022-09-04 08:29] VITALS: BP 132/75; TEMP 98
--- NOTE | 2022-09-04 08:56 | P.DS ---
Providers Date of admission: 09/03/22 06:47 Expected date of discharge: 09/04/22 Attending physician: Sree Broderick Primary care physician: Stated None - Discharge Diagnosis(es) (1) Term Current Visit: Yes Status: Acute (2) Normal spontaneous vaginal delivery Current Visit: No Status: Acute Hospital Course: the patient is a 32-year-old 2 para 1001 admitted at 39 and one sevenths weeks by good dating parameters perches admitted for elective induction with all signs reassuring, category 1 heart rate tracing. Her was complicated only by chronic hypertension for which she was stable on labetalol 200 mg twice daily throughout the . testing beginning at 32 weeks and weekly basis was reassuring. Group B strep status is negative. On labor and delivery, she had Pitocin started followed by artificial rupture of membranes. She had an epidural catheter placed for analgesia and then made fairly rapid progress to complete. She pushed to a normal spontaneous vaginal delivery of a viable 9 lbs. 3 oz. baby boy with Apgars of 9 at 1 minute and 9 at 5 minutes. Her course was unremarkable with vital signs remaining stable and her temperature was afebrile throughout. She was deemed stable for discharge on day 1 was discharged home to follow-up in the office in 6 weeks' time routinely. Discharge instructions included calling for any significantly increased bleeding or foul-smelling lochia, significantly increased fever or abdominal pain, perineal complaints, breast complaints, or anything else that concerned her. She was additionally instructed to have nothing in the vagina for at least 6 weeks time to include intercourse. She understood her instructions and agrees to follow up as noted above. Discharge medications included continued vitamins and [id number] analgesic pain medications. Maternal blood type is A+ and rubella status is immune. Procedures: #1. Pitocin induction #2. Artificial rupture of membranes #3. Epidural analgesia #4. Normal spontaneous vaginal delivery #5. Repair of perineal laceration Patient Condition at Discharge: Stable Plan - Discharge Summary New Discharge Prescriptions: No Action Pnv No.95/Ferrous Fum/Folic AC [ Multivitamin Tablet] 1 tab PO DAILY Thyroid,Pork [[place] Thyroid] 180 mg PO DAILY Aspirin 81 mg PO DAILY Labetalol HCl 200 mg PO BID Discharge Medication List Pnv No.95/Ferrous Fum/Folic AC [ Multivitamin Tablet] 1 tab PO DAILY 03/11/20 [History] Labetalol HCl 200 mg PO BID 03/19/22 [History] Thyroid,Pork [[place] Thyroid] 180 mg PO DAILY 03/19/22 [History] Aspirin 81 mg PO DAILY 09/03/22 [History] Follow up Appointment(s)/Referral(s): Sree Broderick MD [STAFF PHYSICIAN] - 6 Weeks Discharge Disposition: HOME SELF-CARE
== END 2022-09-04 14:00 | disposition home or self-care (01) | DRG 807 ==
LOC: 4FBP 06:47
PROVIDERS: ADMIT Obstetrics & Gynecology; ATTEND Obstetrics & Gynecology
PROC: 10907ZC Drainage of Amniotic Fluid, Therapeutic from Products of Conception, Via Natural or Artificial Opening (ICD-10-PCS; principal; 2022-09-03)
PROC: 0HQ9XZZ Repair Perineum Skin, External Approach (ICD-10-PCS; principal; 2022-09-03)
PROC: 10E0XZZ Delivery of Products of Conception, External Approach (ICD-10-PCS; principal; 2022-09-03)
PROC: 3E033VJ Introduction of Other Hormone into Peripheral Vein, Percutaneous Approach (ICD-10-PCS; principal; 2022-09-03)
DX: O10.92 Unspecified pre-existing hypertension complicating childbirth (principal); Z37.0 Single live birth; O70.0 First degree perineal laceration during delivery; O62.3 Precipitate labor; O99.284 Endocrine, nutritional and metabolic diseases complicating childbirth; E03.9 Hypothyroidism, unspecified; Z79.82 Long term (current) use of aspirin; Z79.899 Other long term (current) drug therapy; Z3A.39 39 weeks gestation of pregnancy
CPT/HCPCS: 85025; 86850; 86900; 86901

== ENCOUNTER 2023-08-20 06:24 | Emergency (ER) | payer BC ==
--- NOTE | 2023-08-20 06:51 | ED ---
Abdominal Pain HPI - General Chief Complaint: Abdominal Pain Stated Complaint: abd pain back pain N/D/V Time Seen by Provider: 08/20/23 06:49 Source: patient, RN notes reviewed Mode of arrival: ambulatory Limitations: no limitations - History of Present Illness Initial Comments: 33-year-old female presents emergency Department chief complaint of abdominal pain, nausea vomiting. Patient states she has had some on-and-off intermittent symptoms which she does not take Tylenol for. She states since last night she's had persistent upper abdominal pain and into her back. Patient states that nothing makes her feel better or worse. She denies any prior abdominal surgeries denies any history of pancreatic or gallbladder issues. She denies any dysuria hematuria denies any chance . Patient offers no associated symptoms. - Related Data Home Medications Medication Instructions Recorded Confirmed Pnv No.95/Ferrous Fum/Folic AC 1 tab PO DAILY 03/11/20 09/03/22 [ Multivitamin Tablet] Labetalol HCl 200 mg PO BID 03/19/22 09/03/22 Thyroid,Pork [[place] Thyroid] 180 mg PO DAILY 03/19/22 09/03/22 Aspirin 81 mg PO DAILY 09/03/22 09/03/22 Previous Rx's Medication Instructions Recorded Dicyclomine [Bentyl] 20 mg PO TID #30 tablet 08/20/23 Famotidine [Pepcid] 20 mg PO BID #28 tablet 08/20/23 Ondansetron Odt [Zofran Odt] 4 mg PO Q8HR PRN #10 tab 08/20/23 Allergies Allergy/AdvReac Type Severity Reaction Status Date / Time No Known Allergies Allergy Verified 09/03/22 07:25 Review of Systems ROS Statement: Those systems with pertinent positive or pertinent negative responses have been documented in the HPI. ROS Other: All systems not noted in ROS Statement are negative. Past Medical History Past Medical History: Hypertension, Thyroid Disorder Additional Past Medical History / Comment(s): hypothyroidism History of Any Multi-Drug Resistant Organisms: None Reported Additional Past Surgical History / Comment(s): right toe surgery from fracture, wisdom teeth Past Anesthesia/Blood Transfusion Reactions: No Reported Reaction Past Psychological History: No Psychological Hx Reported Smoking Status: Never smoker Past Alcohol Use History: Occasional Past Drug Use History: None Reported - Past Family History Father Family Medical History: Hypertension Mother Family Medical History: Hypertension, Thyroid Disorder General Exam - General Exam Comments Initial Comments: Visual Physical Exam Vital signs reviewed General: Well-appearing, nontoxic, no acute distress. Head: Normocephalic, atraumatic Eyes: PERRLA, EOMI ENT: Airway patent Chest: Nonlabored breathing Skin: No visual rash, normal skin tone Neuro: Alert and oriented 3 Musculoskeletal: No gross abnormalities Limitations: no limitations General appearance: alert, in no apparent distress Head exam: Present: atraumatic, normocephalic, normal inspection Eye exam: Present: normal appearance, PERRL, EOMI. Absent: scleral icterus, conjunctival injection, periorbital swelling Neck exam: Present: normal inspection. Absent: tenderness, meningismus, lymphadenopathy Respiratory exam: Present: normal lung sounds bilaterally. Absent: respiratory distress, wheezes, rales, rhonchi, stridor Cardiovascular Exam: Present: regular rate, normal rhythm, normal heart sounds. Absent: systolic murmur, diastolic murmur, rubs, gallop, clicks GI/Abdominal exam: Present: soft, tenderness, normal bowel sounds. Absent: distended, guarding, rebound, rigid Course Vital Signs 08/20/23 08/20/23 08/20/23 06:26 08:55 11:44 Temperature 97.5 F L 97.7 F 97.7 F Pulse Rate 90 75 64 Respiratory 20 18 18 Rate Blood Pressure 156/91 144/88 138/80 O2 Sat by Pulse 99 98 99 Oximetry Medical Decision Making - Medical Decision Making I completed the quick note portion of this chart signed Steven Fung PA-C Was pt. sent in by a medical professional or institution ([facility], PBX OPERATOR, urgent care, hospital, or retirement...) When possible be specific @ -No Did you speak to anyone other than the patient for history (EMS, parent, family, police, friend...)? What history was obtained from this source @ -No Did you review nursing and triage notes (agree or disagree)? Why? @ -I reviewed and agree with nursing and triage notes Were old charts reviewed (outside hosp., previous admission, EMS record, old EKG, old radiological studies, urgent care reports/EKG's, retirement records)? Report findings @ -No old charts were reviewed Differential Diagnosis (chest pain, altered mental status, abdominal pain women, abdominal pain men, vaginal bleeding, weakness, fever, dyspnea, syncope, headache, dizziness, GI bleed, back pain, seizure, CVA, palpatations, mental health, musculoskeletal)? @ -Differential Abdominal Pain Women: Appendicitis, Cholecystitis, diverticulosis, ischemic bowel, pancreatitis, hepatitis, UTI, gastroenteritis, AAA, incarcerated hernia, bowel obstruction, constipation, inflammatory bowel, hepatitis, peptic ulcer disease, splenic infarction, perforated viscus, vulvitis, ovarian torsion, PID, kidney stone, placenta abruption, this is not meant to be an all-inclusive listle EKG interpreted by me (3pts min.). @ -[None X-rays interpreted by me (1pt min.). @ -None done CT interpreted by me (1pt min.). @ -CT pelvis shows no acute process is noted dilated gallbladder though no acute changes otherwise U/S interpreted by me (1pt. min.). @ -None done What testing was considered but not performed or refused? (CT, X-rays, U/S, labs)? Why? @ -None What meds were considered but not given or refused? Why? @ -None Did you discuss the management of the patient with other professionals ( professionals i.e. , PA, PBX OPERATOR, lab, RT, psych nurse, social service technician, cold strip roller, teacher, business liaison officer, employment evaluator/case manager)? Give summary @ -No Was smoking cessation discussed for >3mins.? @ -No Was critical care preformed (if so, how long)? @ -No Were there social determinants of health that impacted care today? How? (Homelessness, low income, unemployed, alcoholism, drug addiction, transpo rtation, low edu. Level, literacy, decrease access to med. care, penitentiary, rehab)? @ -No Was there de-escalation of care discussed even if they declined (Discuss DNR or withdrawal of care, Hospice)? DNR status @ -No What co-morbidities impacted this encounter? (DM, HTN, Smoking, COPD, CAD, Cancer, CVA, ARF, Chemo, Hep., AIDS, mental health diagnosis, sleep apnea, morbid obesity)? @ -None Was patient admitted / discharged? Hospital course, mention meds given and route, prescriptions, significant lab abnormalities, going to OR and other pertinent info. @ -[Discharge we discussed the laboratory studies and CT did not show any acute findings is may be related to her wegovy, versus possible dysfunctional gallbladder. Patient will be discharged with follow-up with surgery, return parameters were discussed. Undiagnosed new problem with uncertain prognosis? @ -No Drug Therapy requiring intensive monitoring for toxicity (Heparin, Nitro, Insulin, Cardizem)? @ -No Were any procedures done? @ -No Diagnosis/symptom? @ -Abdominal pain Acute, or Chronic, or Acute on Chronic? @ -[Acute Uncomplicated (without systemic symptoms) or Complicated (systemic symptoms)? @ -[Uncomplicated Side effects of treatment? @ -No Exacerbation, Progression, or Severe Exacerbation? @ -No Poses a threat to life or bodily function? How? (Chest pain, [place], [place], pneumonia, PE, COPD, DKA, ARF, appy, cholecystitis, CVA, Diverticulitis, Homicidal, Suicidal, threat to staff... and all critical care pts) @ -No - Lab Data Result diagrams: 08/20/23 06:32 08/20/23 06:31 Lab Results 08/20/23 08/20/23 08/20/23 Range/Units 06:31 06:32 06:45 WBC 10.5 (3.8-10.6) k/uL RBC 4.77 (3.80-5.40) m/uL Hgb 14.6 (11.4-16.0) gm/dL Hct 43.8 (34.0-46.0) % MCV 91.8 (80.0-100.0) fL MCH 30.6 (25.0-35.0) pg MCHC 33.3 (31.0-37.0) g/dL RDW 12.8 (11.5-15.5) % Plt Count 253 (150-450) k/uL MPV 8.3 Neutrophils % 82 % Lymphocytes % 12 % Monocytes % 4 % Eosinophils % 1 % Basophils % 0 % Neutrophils # 8.6 H (1.3-7.7) k/uL Lymphocytes # 1.3 (1.0-4.8) k/uL Monocytes # 0.4 (0-1.0) k/uL Eosinophils # 0.1 (0-0.7) k/uL Basophils # 0.0 (0-0.2) k/uL Sodium 137 (137-145) mmol/L Potassium 4.4 (3.5-5.1) mmol/L Chloride 100 (98-107) mmol/L Carbon Dioxide 26 (22-30) mmol/L Anion Gap 11 mmol/L BUN 10 (7-17) mg/dL Creatinine 0.77 (0.52-1.04) mg/dL Est GFR (CKD-EPI)AfAm >90 (>60 ml/min/1.73 sqM) Est GFR (CKD-EPI)NonAf >90 (>60 ml/min/1.73 sqM) Glucose 118 H (74-99) mg/dL Calcium 9.8 (8.4-10.2) mg/dL Total Bilirubin 0.4 (0.2-1.3) mg/dL AST 27 (14-36) U/L ALT 30 (4-34) U/L Alkaline Phosphatase 59 (38-126) U/L Total Protein 7.9 (6.3-8.2) g/dL Albumin 4.8 (3.5-5.0) g/dL Amylase 63 (30-110) U/L Lipase 143 (23-300) U/L Urine Color Yellow Urine Appearance Turbid H (Clear) Urine pH 8.5 H (5.0-8.0) Ur Specific [place] 1.024 (1.001-1.035) Urine Protein Trace H (Negative) Urine Glucose (UA) Negative (Negative) Urine Ketones Negative (Negative) Urine Blood Negative (Negative) Urine Nitrite Negative (Negative) Urine Bilirubin Negative (Negative) Urine Urobilinogen <2.0 (<2.0) mg/dL Ur Leukocyte Esterase Trace H (Negative) Urine WBC 1 (0-5) /hpf Ur Squamous Epith Cells 4 (0-4) /hpf Amorphous Sediment Few H (None) /hpf Urine Mucus Few H (None) /hpf Urine HCG, Qual (Not Detectd) 08/20/23 Range/Units 06:45 WBC (3.8-10.6) k/uL RBC (3.80-5.40) m/uL Hgb (11.4-16.0) gm/dL Hct (34.0-46.0) % MCV (80.0-100.0) fL MCH (25.0-35.0) pg MCHC (31.0-37.0) g/dL RDW (11.5-15.5) % Plt Count (150-450) k/uL MPV Neutrophils % % Lymphocytes % % Monocytes % % Eosinophils % % Basophils % % Neutrophils # (1.3-7.7) k/uL Lymphocytes # (1.0-4.8) k/uL Monocytes # (0-1.0) k/uL Eosinophils # (0-0.7) k/uL Basophils # (0-0.2) k/uL Sodium (137-145) mmol/L Potassium (3.5-5.1) mmol/L Chloride (98-107) mmol/L Carbon Dioxide (22-30) mmol/L Anion Gap mmol/L BUN (7-17) mg/dL Creatinine (0.52-1.04) mg/dL Est GFR (CKD-EPI)AfAm (>60 ml/min/1.73 sqM) Est GFR (CKD-EPI)NonAf (>60 ml/min/1.73 sqM) Glucose (74-99) mg/dL Calcium (8.4-10.2) mg/dL Total Bilirubin (0.2-1.3) mg/dL AST (14-36) U/L ALT (4-34) U/L Alkaline Phosphatase (38-126) U/L Total Protein (6.3-8.2) g/dL Albumin (3.5-5.0) g/dL Amylase (30-110) U/L Lipase (23-300) U/L Urine Color Urine Appearance (Clear) Urine pH (5.0-8.0) Ur Specific [place] (1.001-1.035) Urine Protein (Negative) Urine Glucose (UA) (Negative) Urine Ketones (Negative) Urine Blood (Negative) Urine Nitrite (Negative) Urine Bilirubin (Negative) Urine Urobilinogen (<2.0) mg/dL Ur Leukocyte Esterase (Negative) Urine WBC (0-5) /hpf Ur Squamous Epith Cells (0-4) /hpf Amorphous Sediment (None) /hpf Urine Mucus (None) /hpf Urine HCG, Qual Not Detected (Not Detectd) Disposition Clinical Impression: Abdominal pain Disposition: HOME SELF-CARE Condition: Stable Instructions (If sedation given, give patient instructions): Abdominal Pain (ED) Additional Instructions: Please return to the Emergency Department if symptoms worsen or any other concer ns. Prescriptions: Dicyclomine [Bentyl] 20 mg PO TID #30 tablet Famotidine [Pepcid] 20 mg PO BID #28 tablet Ondansetron Odt [Zofran Odt] 4 mg PO Q8HR PRN #10 tab PRN Reason: Nausea Is patient prescribed a controlled substance at d/c from ED?: No Referrals: None,Stated [REFERRING] - 1-2 days Donal Marcano MD [STAFF PHYSICIAN] - 1-2 days Time of Disposition: 11:09
[2023-08-20 07:00] LABS: Basophils % (A) 0 %; Eosinophils # (A) 0.1 k/uL (0-0.7); Eosinophils % (A) 1 %; HCT 43.8 % (34.0-46.0); HGB 14.6 gm/dL (11.4-16.0); Lymphocytes # (A) 1.3 k/uL (1.0-4.8); Lymphocytes % (A) 12 %; MCH 30.6 pg (25.0-35.0); MCHC 33.3 g/dL (31.0-37.0); MCV 91.8 fL (80.0-100.0); Mean Platelet Volume 8.3; Monocytes # (A) 0.4 k/uL (0-1.0); Monocytes % (A) 4 %; Neutrophils # (A) 8.6 k/uL (1.3-7.7); Neutrophils % (A) 82 %; Platelet Count 253 k/uL (150-450); RBC 4.77 m/uL (3.80-5.40); RDW 12.8 % (11.5-15.5); WBC 10.5 k/uL (3.8-10.6)
[2023-08-20 07:26] LABS: Amorphous Sediment,Urine Few /hpf; Appearance,Urine Turbid (Clear); Bilirubin,Urine Negative (Negative); Blood,Urine Negative (Negative); Color,Urine Yellow; Glucose,Urine (UA) Negative (Negative); Ketones,Urine Negative (Negative); Leukocyte Esterase,Urine Trace (Negative); Mucus,Urine Few /hpf; Nitrite,Urine Negative (Negative); PH, Urine 8.5 (5.0-8.0); Protein,Urine Trace (Negative); Specific Gravity,Urine 1.024 (1.001-1.035); Squamous Epithelial Cell,Urine 4 /hpf (0-4); Urobilinogen,Urine <2.0 mg/dL (<2.0); WBC,Urine 1 /hpf (0-5)
[2023-08-20 07:31] LABS: ALT 30 U/L (4-34); AST 27 U/L (14-36); African American GFR (CKD) >90 (>60 ml/min/1.73 sqM); Albumin 4.8 g/dL (3.5-5.0); Alkaline Phosphatase 59 U/L (38-126); Amylase 63 U/L (30-110); Anion Gap 11 mmol/L; Blood Urea Nitrogen 10 mg/dL (7-17); Calcium 9.8 mg/dL (8.4-10.2); Carbon Dioxide 26 mmol/L (22-30); Chloride 100 mmol/L (98-107); Glucose 118 mg/dL (74-99); Lipase 143 U/L (23-300); Non-African American GFR(CKD) >90 (>60 ml/min/1.73 sqM); Potassium 4.4 mmol/L (3.5-5.1); Sodium 137 mmol/L (137-145); Total Bilirubin 0.4 mg/dL (0.2-1.3); Total Protein 7.9 g/dL (6.3-8.2)
[2023-08-20] MEDS ORDERED: ONDANSETRON 4 MG/2 ML VIAL IVP STA (07:58)
[2023-08-20] MEDS ORDERED: HYDROmorphone 0.5 MG/0.5 ML SYRINGE IVP STA ×2 (07:58→10:10)
[2023-08-20] MEDS ORDERED: SODIUM CHLORIDE 0.9% 500 ML 500 ML IV ONE (08:18)
[2023-08-20] MEDS ORDERED: SODIUM CHLORIDE 0.9% 1,000 ML IV ONE (08:18)
[2023-08-20] MEDS ORDERED: KETOROLAC 15 MG/ML 1 ML VIAL IVP STA (09:04)
[2023-08-20 09:07] VITALS: RESP 18; TEMP 97.7
--- NOTE | 2023-08-20 09:44 | CT ---
EXAMINATION TYPE: CT abdomen pelvis w con CT DLP: 1217.8 mGycm, Automated exposure control for dose reduction was used. DATE OF EXAM: 08/20/2023 8:29 AM COMPARISON: None CLINICAL INDICATION:Female, 33 years old with history of pain; abdominal pain radiating into the back TECHNIQUE: Axial CT of the abdomen and pelvis. Sagittal and coronal reformats were created on a [employer] workstation. Contrast used: 100 mL of Isovue 300 with IV Contrast, (none if empty) Oral contrast used: (none if empty) FINDINGS: LOWER CHEST: Unremarkable ABDOMEN LIVER: Unremarkable GALLBLADDER AND BILE DUCTS: Gallbladder is mildly distended without evidence of calcified gallstones or pericholecystic inflammation. No biliary dilatation. PANCREAS: Unremarkable. SPLEEN: Unremarkable. ADRENAL GLANDS: Unremarkable. KIDNEYS AND URETERS: Kidneys enhance symmetrically. No evidence of hydronephrosis or visible renal ca lculus. The ureters are unremarkable. PELVIS BLADDER: Incompletely distended but grossly unremarkable. REPRODUCTIVE: Uterus is present with prominent central uterine hypoattenuation, likely normal in a re productive age patient. Likely physiologic ovarian follicles. Trace pelvic fluid, likely physiologic. ABDOMEN & PELVIS STOMACH AND BOWEL: Stomach and small bowel are nondistended, no evidence of obstruction. The append ix appears within normal limits. Mild/moderate stool in the colon, especially proximally. Some segmen ts are nondistended and not well assessed. No focal acute abnormality is seen. PERITONEUM/RETROPERITONEUM: No evidence of pneumoperitoneum or free fluid in the abdomen. VASCULATURE: Portal veins are enhancing. Splenic vein is patent. LYMPH NODES: No gross evidence for lymphadenopathy. SOFT TISSUE/ABDOMINAL WALL: Tiny fat-containing umbilical hernia. MUSCULOSKELETAL: No acute osseous abnormalities. Mild degenerative changes. Chronic bilateral L5 par s defects with grade 1 anterolisthesis L5 on S1 measuring 3 mm. IMPRESSION: 1. No acute abnormality to explain the patient's symptoms. 2. Chronic bilateral L5 pars defects with grade 1 anterolisthesis L5 on S1.
[2023-08-20] MEDS ORDERED: DICYCLOMINE 10 MG/ML 2 ML AMP IM STA (10:09)
[2023-08-20] MEDS ORDERED: MAG HYDROX/AL HYDROX/SIMETH 30 ML, HYOSCYAMINE ELIXIR 10 ML PO STA ×2 (10:10)
[2023-08-20] MEDS ORDERED: ACET/COD 300 MG/30 MG STARTER PACK 6 TAB BTL PO STA (11:08)
[2023-08-20 11:52] VITALS: BP 138/80; PULSE 64
== END 2023-08-20 11:48 | disposition home or self-care (01) ==
LOC: EC 06:24
DX: K82.8 Other specified diseases of gallbladder (principal); I10 Essential (primary) hypertension; E03.9 Hypothyroidism, unspecified; Z79.890 Hormone replacement therapy; Z79.82 Long term (current) use of aspirin; Z79.899 Other long term (current) drug therapy
CPT/HCPCS: 99284; 96374; 96375 ×2; 96376; 96361 ×3; 96372; 36415; 80053; 82150; 83690; 85025; 81001; 81025; 74177; J0500; J2405; J1885; J1170; Q9967